=== PATIENT | female | born 1940 | race Caucasian/White ===

== ENCOUNTER 2020-01-09 00:46 | Outpatient (CLI) | payer MEDICARE, SELFPAY ==
[2020-01-09 19:19] LABS: SARS-CoV-2 RNA PCR Negative
== END 2020-01-09 00:47 | disposition home or self-care (01) ==
PROVIDERS: Visit Provider Urology
DX: Z01.818 Encounter for other preprocedural examination (principal); Z11.59 Encounter for screening for other viral diseases
CPT/HCPCS: 87635; C9803; U0003

== ENCOUNTER 2020-01-11 01:15 | Day surgery (SDC) | payer MEDICARE, SELFPAY ==
[2020-01-02 09:25] VITALS: BMI 31.9
--- NOTE | 2020-01-10 11:10 | WPDANESEPPF ---
Anes - Initial Pre Proc Eval Procedure: Operation Date: 01/11/20 11:00 Proposed Procedures p Cystoscopy With Bulking Agent - Herb Antoine MD Date/Time: 01/10/20 11:10 Surgeon: Herb Antoine MD Pre Op Diagnosis: ISD Patient Data Age: 79 Gender: F Height: 1.63 m Weight: 85 kg Allergies Allergy/AdvReac Type Severity Reaction Status Date / Time No Known Allergies Allergy Verified 01/11/20 10:25 Home Medications Medication Instructions Recorded Confirmed Type clonazepam 1 mg PO HS PRN 01/02/20 01/11/20 History colestipol 2 g PO BID 01/02/20 01/11/20 History fenofibrate 54 mg PO HS 01/02/20 01/11/20 History levothyroxine 88 mcg PO DAILY 01/02/20 01/11/20 History metformin 500 mg PO QPM 01/02/20 01/11/20 History metoprolol tartrate 100 mg PO Q12H 01/02/20 01/11/20 History omeprazole 20 mg PO DAILY 01/02/20 01/11/20 History triamterene-hydrochlorothiazid 1 tablet PO QAM 01/02/20 01/11/20 History phenazopyridine [Pyridium] 200 mg PO TID PRN #30 tablet 01/14/20 Rx Patient hx anesthesia problems: none Family hx anesthesia problems: none PMFSH Social History Social History Smoking status: Former smoker Tobacco type: cigarettes Second hand tobacco smoke exposure: No Additional smoking assessment comments: HX OF 1PK/DAY/AGE 22 TO 37 Alcohol intake: never Substance use: never Substance use type: does not use Living arrangements: alone Gender identity (if verbalized by the patient): Female Spiritual care concerns: No Anes - Eval Final PreProcedure Day of Procedure 01/10/20 11:10 Patient weight: obese Heart: regular rate and rhythm Lungs: clear to auscultation and normal air movement Airway: Mallampati scale class II Neurological: alert and oriented Last oral intake: >/= 8 hours ASA classification: III Emergent: no Anesthetic plan: proceed Anesthesia type and monitoring: general GIVS and standard monitoring Informed Consent: The patient's anesthetic plan and its attendant risks and benefits were discussed with the patient/family/POA. Questions were solicited and answers provided to the satisfaction of the patient/family/POA.
--- NOTE | 2020-01-11 07:16 | WPDHPUPDATE1 ---
History and Physical Update Update Date/Time: 01/11/20 07:16 History and Physical has been reviewed, including an updated exam of the patient. There are NO changes in the patient's condition. Risks, benefits, and alternatives have been discussed and questions answered. Patient agrees to proceed with procedure.
[2020-01-11] MEDS: LACTATED RINGERS 1,000 ML 30 ML IV CONT (10:00)
[2020-01-11 10:04] LABS: Glucose Point of Care 143 (65-105)
[2020-01-11 13:43] VITALS: BP 150/78; PULSE 88; RESP 18; TEMP 36.7; O2SAT 92
[2020-01-11 20:43] LABS: SARS-CoV-2 RNA PCR Negative
== END 2020-01-11 11:30 | disposition home or self-care (01) ==
PROVIDERS: Visit Provider Urology
PROC: 3E0K8GC Introduction of Other Therapeutic Substance into Genitourinary Tract, Via Natural or Artificial Opening Endoscopic (ICD-10-PCS; principal; 2020-01-11 11:00)
DX: N36.42 Intrinsic sphincter deficiency (ISD) (principal); Z53.9 Procedure and treatment not carried out, unspecified reason
CPT/HCPCS: 87635; 99211; C9803; G0463; J7120; U0003

== ENCOUNTER 2020-01-14 00:54 | Day surgery (SDC) | payer MEDICARE, SELFPAY ==
[2020-01-11 13:56] VITALS: BMI 31.6
--- NOTE | 2020-01-14 07:30 | WPDHPUPDATE1 ---
History and Physical Update Update Date/Time: 01/14/20 07:30 History and Physical has been reviewed, including an updated exam of the patient. There are NO changes in the patient's condition. Risks, benefits, and alternatives have been discussed and questions answered. Patient agrees to proceed with procedure.
[2020-01-14 12:27] VITALS: BP 155/80; PULSE 81; RESP 14; TEMP 36.4; O2SAT 96; BMI 32.5
[2020-01-14] MEDS: LACTATED RINGERS 1,000 ML 30 ML IV CONT (12:30)
--- NOTE | 2020-01-14 13:07 | WPDANESEPPF ---
Anes - Initial Pre Proc Eval Procedure: Operation Date: 01/14/20 13:45 Proposed Procedures p Cystoscopy with Bulking Agent - Herb Antoine MD Date/Time: 01/14/20 13:07 Surgeon: Herb Antoine MD Pre Op Diagnosis: ISD Patient Data Age: 79 Gender: F Height: 5 ft 4 in Weight: 86.2 kg Last Vital Signs Temp 36.4 C L 01/14/20 12:27 Pulse 81 01/14/20 12:27 Resp 14 01/14/20 12:27 BP 155/80 H 01/14/20 12:27 Pulse Ox 96 01/14/20 12:27 Allergies Allergy/AdvReac Type Severity Reaction Status Date / Time No Known Allergies Allergy Verified 01/11/20 10:25 Home Medications Medication Instructions Recorded Confirmed Type clonazepam 1 mg PO HS PRN 01/02/20 01/11/20 History colestipol 2 g PO BID 01/02/20 01/11/20 History fenofibrate 54 mg PO HS 01/02/20 01/11/20 History levothyroxine 88 mcg PO DAILY 01/02/20 01/11/20 History metformin 500 mg PO QPM 01/02/20 01/11/20 History metoprolol tartrate 100 mg PO Q12H 01/02/20 01/11/20 History omeprazole 20 mg PO DAILY 01/02/20 01/11/20 History triamterene-hydrochlorothiazid 1 tablet PO QAM 01/02/20 01/11/20 History Patient hx anesthesia problems: none Family hx anesthesia problems: none PMFSH Past Medical History Medical History Diabetes type 2, controlled GERD (gastroesophageal reflux disease) History of skin cancer Hyperlipidemia Hypertension Hypothyroidism JOSE (obstructive sleep apnea) RLS (restless legs syndrome) Surgical History Surgical History History of cholecystectomy History of colon resection History of hysterectomy History of thyroidectomy History of total knee replacement b/l Social History Social History Smoking status: Former smoker Tobacco type: cigarettes Second hand tobacco smoke exposure: No Additional smoking assessment comments: HX OF 1PK/DAY/AGE 22 TO 37 Alcohol intake: never Substance use: never Substance use type: does not use Living arrangements: alone Gender identity (if verbalized by the patient): Female Spiritual care concerns: No Anes - Eval Final PreProcedure Day of Procedure 01/14/20 13:07 Patient weight: obese Heart: regular rate and rhythm Lungs: clear to auscultation Airway: Mallampati scale class II Neurological: alert and oriented Last oral intake: >/= 8 hours ASA classification: III Emergent: no Anesthetic plan: proceed Anesthesia type and monitoring: general GIVS and standard monitoring Informed Consent: The patient's anesthetic plan and its attendant risks and benefits were discussed with the patient/family/POA. Questions were solicited and answers provided to the satisfaction of the patient/family/POA.
[2020-01-14] MEDS: ceFAZolin 2 GM/D5W 50 ML 2 GM/50 ML BAG IVPB (13:55)
[2020-01-14] MEDS: LIDOCAINE HCL 2% GEL UROJET 10 ML PKG MUCOUS MEM (14:06)
[2020-01-14 14:13] VITALS: BP 112/63; PULSE 83; RESP 16; O2SAT 96
--- NOTE | 2020-01-14 14:16 | PM.PROC ---
Procedure Note - Detailed Date of procedure: 01/14/20 Pre-op diagnosis: ISD Intrinsic sphincter deficiency Post-op diagnosis: same Procedure performed: Cystoscopy with implantation of suburethral implant material [id number] Description of procedure: She was correctly identified and informed consent was obtained. She was brought to the operating room. She was given mac anesthesia. She was placed in the dorsal lithotomy position. She was prepped and draped in a sterile fashion. A time-out performed. Cystoscopy revealed no tumors in the bladder and an open urethra consistent with intrinsic sphincter deficiency. I injected the bulking agent into the urethra at the 10:00 a.m. to o'clock and 6 o'clock position. There is excellent bulking effect. Her bladder was drained with a 12 Welsh red rubber catheter. She was awakened and transferred to the PACU in stable condition. Implants: Macroplastique Anesthesia: MAC Surgeon: Herb Antoine MD Drains: No Packing: No Pathology: none sent Complications: No immediate complications Condition: stable Disposition: PACU
[2020-01-14 14:40] VITALS: BP 120/65; PULSE 97; RESP 16
[2020-01-14 19:47] LABS: Glucose Point of Care 109 (65-105)
== END 2020-01-14 15:05 | disposition home or self-care (01) ==
PROVIDERS: Visit Provider Urology
PROC: 3E0K8GC Introduction of Other Therapeutic Substance into Genitourinary Tract, Via Natural or Artificial Opening Endoscopic (ICD-10-PCS; CPT 51715; principal; 2020-01-14 13:45)
DX: N36.42 Intrinsic sphincter deficiency (ISD) (principal); I10 Essential (primary) hypertension; E11.9 Type 2 diabetes mellitus without complications; Z79.84 Long term (current) use of oral hypoglycemic drugs; E78.5 Hyperlipidemia, unspecified; K21.9 Gastro-esophageal reflux disease without esophagitis; E89.0 Postprocedural hypothyroidism; G47.33 Obstructive sleep apnea (adult) (pediatric); G25.81 Restless legs syndrome; Z85.828 Personal history of other malignant neoplasm of skin; Z96.653 Presence of artificial knee joint, bilateral; Z87.891 Personal history of nicotine dependence; Z79.899 Other long term (current) drug therapy
CPT/HCPCS: 51715; A9270; J0690; J2704; J3010; J7120; L8606